=== PATIENT | female | born 1985 | race Caucasian/White ===

== ENCOUNTER 2021-12-06 13:24 | Emergency (ER) | payer BC ==
[2021-12-06 13:31] VITALS: BP 88/56; PULSE 63
[2021-12-06 14:58] LABS: CORONAVIRUS COVID-19 NAA POSITIVE (NEGATIVE)
== END 2021-12-06 15:50 | disposition home or self-care (01) ==
LOC: JD.ED 13:24
DX: U07.1 COVID-19 (principal); F17.210 Nicotine dependence, cigarettes, uncomplicated; Z88.1 Allergy status to other antibiotic agents; Z79.899 Other long term (current) drug therapy
CPT/HCPCS: 0240U; 36415; 80053; 82947; 83735; 85025; 93005; 99284